=== PATIENT | female | born 1985 | race Asian ===

== ENCOUNTER 2021-12-23 19:52 | Emergency (ER) | payer OTHER ==
[2021-12-23] MEDS ORDERED: ACETAMINOPHEN 325 MG TABLET PO STA (21:00)
[2021-12-23] MEDS ORDERED: oxyCODONE 5 MG TABLET PO STA (21:00)
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
--- NOTE | 2021-12-23 22:30 | XRAY Report ---
PROCEDURE: Wrist 3 View RT INDICATIONS: wrist pain TECHNIQUE: 3 views of the wrist were acquired. COMPARISON: Concurrent study of the forearm. FINDINGS: Bones: There is a comminuted fracture of the distal radius with mild dorsal and radial sided displac ement distally as well as mild impaction. There is slight dorsal angulation. Fracture extends to the distal radioulnar joint. Soft tissues: No suspicious soft tissue calcifications. IMPRESSION: 1. Comminuted, displaced, and mildly impacted fracture of the distal radius. Reviewed by: Shukri Mosqueda MD on 12/23/2021 10:28 PM PST Approved by: Shukri Mosqueda MD on 12/23/2021 10:28 PM PST Station ID: [id number]
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
[2021-12-23] MEDS ORDERED: MIDAZOLAM 10 MG/2 ML VIAL IM STA (23:33)
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
--- NOTE | 2021-12-24 00:45 | XRAY Report ---
PROCEDURE: Wrist 3 View RT INDICATIONS: post reduction TECHNIQUE: 3 views of the wrist were acquired. COMPARISON: Previous wrist study from 12/23/2021 FINDINGS: Bones: There is slight interval improved alignment status post closed reduction of the previously lorena cribed distal radius fracture. There is decreased displacement, impaction, and angulation. Fracture e xtension to the distal radioulnar joint again noted. There is an external splint which limits evaluat ion of fine bony detail. Soft tissues: No suspicious soft tissue calcifications. IMPRESSION: 1. Improved alignment status post closed reduction of comminuted distal radius fracture. Reviewed by: Shukri Mosqueda MD on 12/24/2021 12:43 AM PST Approved by: Shukri Mosqueda MD on 12/24/2021 12:43 AM PST Station ID: [id number]
[2021-12-24 01:18] VITALS: BP 126/79
== END 2021-12-24 01:15 | disposition home or self-care (01) ==
LOC: ED 19:52
DX: S52.501A Unspecified fracture of the lower end of right radius, initial encounter for closed fracture (principal); V48.5XXA Car driver injured in noncollision transport accident in traffic accident, initial encounter; F17.200 Nicotine dependence, unspecified, uncomplicated
CPT/HCPCS: 25605; 71045; 73030; 73090; 73110; 96372; 99284; A9270; J2250

== ENCOUNTER 2021-12-29 08:00 | Outpatient (CLI) | payer OTHER ==
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
== END 2021-12-29 23:59 | disposition home or self-care (01) ==
LOC: DI.WOS 08:00
PROVIDERS: ATTEND Orthopaedic Surgery
DX: S52.571D Other intraarticular fracture of lower end of right radius, subsequent encounter for closed fracture with routine healing (principal)

== ENCOUNTER 2021-12-30 06:58 | Day surgery (SDC) | payer OTHER ==
[2021-12-30] MEDS ORDERED: ACETAMINOPHEN 500 MG TABLET PO ONE (07:05)
[2021-12-30] MEDS ORDERED: CELECOXIB 100 MG CAPSULE PO ONE (07:06)
[2021-12-30] MEDS ORDERED: CEFAZOLIN 2G/50ML 0.9% NS 2 GM/50 ML BAG IV ONE (07:06)
[2021-12-30 07:23] LABS: HCG UR QUAL NEGATIVE
[2021-12-30] MEDS ORDERED: LACTATED RINGERS 1,000 ML IV ONE ×2 (07:36→09:11)
[2021-12-30] MEDS ORDERED: ONDANSETRON 4 MG/2 ML VIAL IVP PRN ×2 (07:56→09:34)
[2021-12-30] MEDS ORDERED: oxyCODONE 5 MG TABLET PO PRN (07:56)
[2021-12-30] MEDS ORDERED: ACETAMINOPHEN 500 MG TABLET PO PRN (07:56)
[2021-12-30] MEDS ORDERED: CELECOXIB 100 MG CAPSULE PO PRN (07:56)
--- NOTE | 2021-12-30 07:56 | ANESTHESIA ---
Pre-Anesthesia VS, & Labs - Diagnosis DISPLACED FRACTURE OF RIGHT DISTAL RADIUS - Procedure CLOSED REDUCTION PERCUTANEOUS PINNING, RIGHT WRIST Vital Signs: Temp Pulse Resp BP Pulse Ox O2 Flow Rate 36.7 C 54 L 16 111/78 98 0 12/30/21 07:23 12/30/21 07:23 12/30/21 07:23 12/30/21 07:23 12/30/21 07:23 12/30/21 07:23 Height: 5 ft 2 in Weight (kg): 71.4 kg Body Mass Index: 28.8 BMI Classification: Overweight - NPO >8 hours - Is Patient ?: No Home Medications and Allergies Home Medications: Ambulatory Orders ALPRAZolam [Alprazolam] 1 tab PO PRN PRN 12/29/21 Propranolol [Inderal] 10 mg PO DAILY 12/24/21 Sertraline HCl [Zoloft] 50 mg PO DAILY 12/24/21 ALPRAZolam [Alprazolam] 1 tab PO PRN PRN 12/29/21 Allergies/Adverse Reactions: Allergies Allergy/AdvReac Type Severity Reaction Status Date / Time No Known Drug Allergies Allergy Verified 12/23/21 20:07 Anes History & Medical History - Anesthetic History Anesthesia Complications: reports: No previous complications Family history of Anesthesia Complications: Denies Family history of Malignant Hyperthermia: Denies - Medical History Cardiovascular: reports: None Pulmonary: reports: None Gastrointestinal: reports: None Urinary: reports: None Neuro: reports: Other (TENSION HEADACHES) Musculoskeletal: reports: None Endocrine/Autoimmune: reports: None Blood Disorders: reports: None Skin: reports: None Smoking Status: Current every day smoker (5 CIGARETTES PER DAY) Psychosocial: reports: Depression, Anxiety, Cannabis History of Cancer?: No - Surgical History Eyes Ears Nose Throat (EENT): reports: Other Exam General: Alert, Oriented x3, Cooperative, No acute distress Dental: WNL Mouth Openin Fingerbreadth Neck Mobility: Normal Mallampati classification: I Thyromental Distance: 4-6 cm Respiratory: Lungs clear, Normal breath sounds, No respiratory distress, No accessory muscle use Cardiovascular: Regular rate, Normal S1, Normal S2, No murmurs Mental/Cognitive Status: Alert/Oriented X3, Normal for patient Cognitive Status: Within normal limits Plan Anesthesia Type: General Consent for Procedure(s) Verified and Reviewed: Yes Code Status: Attempt Resuscitation ASA classification: 2-Mild systemic disease Is this case an emergency?: No
[2021-12-30] MEDS ORDERED: PROPOFOL 200 MG/20 ML VIAL IVP ONE (08:00)
[2021-12-30] MEDS ORDERED: MIDAZOLAM 2 MG/2 ML VIAL ONE (08:00)
[2021-12-30] MEDS ORDERED: fentaNYL 100 MCG/2 ML VIAL ONE (08:01)
[2021-12-30] MEDS ORDERED: LIDOCAINE MPF 2%-EPI 1:200000 20 ML VIAL ONE (08:01)
[2021-12-30] MEDS ORDERED: BUPIVACAINE 0.5% PF 30 ML VIAL ONE (08:01)
[2021-12-30] MEDS ORDERED: DEXAMETHASONE 4 MG/ML VIAL ONE (08:01)
[2021-12-30] MEDS ORDERED: KETAMINE 500 MG/10 ML VIAL ONE (08:33)
[2021-12-30] MEDS ORDERED: LIDOCAINE MPF 2%-EPI 1:200000 20 ML VIAL SUBQ ONE (08:56)
[2021-12-30] MEDS ORDERED: BUPIVACAINE 0.5% PF 30 ML VIAL INFIL ONE (08:57)
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
[2021-12-30] MEDS ORDERED: ePHEDrine 50 MG/ML VIAL IVP PRN (09:34)
[2021-12-30] MEDS ORDERED: HYDROmorphone 0.5 MG/0.5 ML SYRINGE IVP PRN (09:34)
[2021-12-30] MEDS ORDERED: MORPHINE 2 MG/ML CARPUJECT IVP PRN (09:34)
[2021-12-30] MEDS ORDERED: NALOXONE 0.4 MG/ML VIAL IVP PRN (09:34)
[2021-12-30] MEDS ORDERED: fentaNYL 100 MCG/2 ML VIAL IVP PRN (09:34)
[2021-12-30] MEDS ORDERED: ATROPINE ABBOJECT 1 MG/10 ML SYRINGE IVP PRN (09:34)
[2021-12-30] MEDS ORDERED: LACTATED RINGERS 1,000 ML IV SCH (10:00)
[2021-12-30] MEDS ORDERED: HYDROmorphone 1 MG/ML CARPUJECT ONE (10:19)
[2021-12-30] MEDS ORDERED: oxyCODONE 5 MG TABLET ONE (10:29)
[2021-12-30 11:17] VITALS: BP 126/83
--- NOTE | 2021-12-30 12:16 | ANESTHESIA POST OP EVALUATION ---
Anesthesia Post Eval - Post Anesthesia Eval Vitals: Last Vital Signs Temp 36.5 C 12/30/21 10:48 Pulse 58 L 12/30/21 10:48 Resp 16 12/30/21 10:48 BP 126/83 H 12/30/21 10:48 Pulse Ox 96 12/30/21 10:48 O2 Flow Rate 0 12/30/21 07:23 CV Function Including HR & BP: Stable Pain Control: Satisfactory Nausea & Vomiting: Negative Mental Status: Baseline Respiratory Status: Airway Patent Hydration Status: Satisfactory Anesthesia Complications: None
--- NOTE | 2022-01-02 11:15 | XRAY Report ---
PROCEDURE: OR C-Arm Procedure INDICATIONS: Closed reduction, percutaneous pinning of R wrist FLUORO TIME: .21 MIN COMPARISON: 12/29/2021 Findings and impression: 4 intraoperative images were obtained for distal radius pin fixation. Please see operative note for f ull details. Reviewed by: Missael San MD on 01/02/2022 11:14 AM PST Approved by: Missael San MD on 01/02/2022 11:14 AM PST Station ID: [id number]
== END 2021-12-30 06:59 | disposition home or self-care (01) ==
LOC: SDS 06:58
PROVIDERS: ATTEND Orthopaedic Surgery
DX: S52.531A Colles' fracture of right radius, initial encounter for closed fracture (principal); V47.5XXA Car driver injured in collision with fixed or stationary object in traffic accident, initial encounter; F17.210 Nicotine dependence, cigarettes, uncomplicated; Z32.02 Encounter for pregnancy test, result negative
CPT/HCPCS: 25606; 81025; A9270; C1713; J0690; J1170; J7120

== ENCOUNTER 2022-01-30 16:36 | Outpatient (CLI) | payer OTHER ==
--- NOTE | 2022-01-30 13:54 | XRAY Report ---
PROCEDURE: Wrist 3 View RT INDICATIONS: RIGHT WRIST FRACTURE TECHNIQUE: 3 views of the wrist were acquired. COMPARISON: 12/29/2021 FINDINGS: Bones: There is interval surgical pinning of distal radius. Wrist alignment is anatomic. No gross queenie dware loosening or failure. Comminuted distal radial fracture is again seen. No new fracture or dislo cation. No suspicious bony lesions. Soft tissues: No suspicious soft tissue calcifications. IMPRESSION: Interval surgical pinning of previously noted comminuted distal radial fracture with anatomic wrist a lignment. No new fracture or dislocation. No gross hardware complication. Reviewed by: Lonnie Collins MD on 01/30/2022 1:53 PM PST Approved by: Lonnie Collins MD on 01/30/2022 1:53 PM PST Station ID: [id number]
== END 2022-01-30 16:37 | disposition home or self-care (01) ==
LOC: DI.WOS 16:36
PROVIDERS: ATTEND Orthopaedic Surgery
DX: S52.531D Colles' fracture of right radius, subsequent encounter for closed fracture with routine healing (principal)

== ENCOUNTER 2022-02-14 08:00 | Outpatient (CLI) | payer OTHER ==
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
== END 2022-02-14 23:59 | disposition home or self-care (01) ==
LOC: DI.WOS 08:00
PROVIDERS: ATTEND Physician Assistant Surgical
DX: S52.531D Colles' fracture of right radius, subsequent encounter for closed fracture with routine healing (principal)

== ENCOUNTER 2022-04-24 14:32 | Outpatient (CLI) | payer OTHER ==
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
== END 2022-04-24 14:33 | disposition home or self-care (01) ==
LOC: DI.WOS 14:32
PROVIDERS: ATTEND Orthopaedic Surgery
DX: S52.531D Colles' fracture of right radius, subsequent encounter for closed fracture with routine healing (principal); S52.614D Nondisplaced fracture of right ulna styloid process, subsequent encounter for closed fracture with routine healing